=== PATIENT | female | born 1990 | race Native Hawaiian/Other Pacific Islander ===

== ENCOUNTER 2017-11-23 12:55 | Inpatient (IN) | payer BC, OTHER ==
[~2017-11-23] VITALS: Ht 175.3 cm; Wt 64.0 kg
[2017-11-23] MEDS: LR 1,000 ML IV SCH ×2 (13:53→23:00)
[2017-11-23] MEDS ORDERED: LR 1,000 ML IV SCH (16:51)
[2017-11-23] MEDS ORDERED: LR 1,000 ML IV ONE (16:51)
[2017-11-23] MEDS ORDERED: OXYTOCIN/NORMAL SALINE 1,000 ML IV SCH (16:51)
[2017-11-23] MEDS ORDERED: NALBUPHINE HCL 10 MG/ML AMP IVP PRN (17:00)
[2017-11-23 17:47] LABS: BASOPHILS % (AUTO) 0.2 % (0.0-2.0); EOSINOPHILS % (AUTO) 0.4 % (0.0-4.0); HEMATOCRIT 30.5 % (36-48); HEMOGLOBIN 9.8 g/dL (12.0-16.0); LYMPHOCYTES # (AUTO) 1.9 K/uL (1.0-5.5); LYMPHOCYTES % (AUTO) 19.5 % (20.5-51.5); MEAN CORPUSCULAR HEMOGLOBIN 28 pg (27-31); MEAN CORPUSCULAR HGB CONC 32 % (32-36); MEAN CORPUSCULAR VOLUME 86 fL (79.0-98.0); MONOCYTES # (AUTO) 0.5 K/uL (0.0-1.0); MONOCYTES % (AUTO) 5.5 % (1.7-9.3); NEUTROPHILS # (AUTO) 7.2 K/uL (1.8-7.7); NEUTROPHILS % (AUTO) 74.4 % (40.0-70.0); PLATELET COUNT (AUTO) 148 K/uL (130-430); RED BLOOD CELL COUNT(AUTO) 3.56 MIL/uL (4.2-6.2); WHITE BLOOD COUNT (AUTO) 9.6 K/uL (4.8-10.8)
[2017-11-24] MEDS: LR 1,000 ML IV SCH (07:10)
[2017-11-24] MEDS ORDERED: fentaNYL CITRATE/PF 100 MCG/2 ML AMP ONE (12:15)
[2017-11-24] MEDS ORDERED: FENT2mCg/mL-ROPIVA0.2%/NS EPID 150 ML EP SCH (12:45)
[2017-11-24] MEDS ORDERED: LR 500 ML IV ONE (12:45)
[2017-11-24] MEDS ORDERED: fentaNYL CITRATE/PF 100 MCG/2 ML AMP IVP ONE ×2 (12:45)
[2017-11-24] MEDS ORDERED: ePHEDrine sulfate 50 MG/ML VIAL IVP PRN (12:45)
[2017-11-24] MEDS ORDERED: D5/0.45 NS 1,000 ML IV ONE (15:15)
[2017-11-24] MEDS ORDERED: METHYLERGONOVINE MALEATE 0.2 MG/ML AMP IM ONE (18:00)
[2017-11-24] MEDS ORDERED: OXYTOCIN/NORMAL SALINE 1,000 ML IV ONE (18:03)
[2017-11-24] MEDS ORDERED: OXYTOCIN/NORMAL SALINE 1,000 ML IV SCH (18:03)
[2017-11-24] MEDS ORDERED: SENNOSIDES/DOCUSATE SODIUM 1 TAB TABLET(SENOKOT-S) PO PRN (18:15)
[2017-11-24] MEDS ORDERED: HYDROCORTISONE 0.5%, 28.35 GM TOPICAL CREAM TP PRN (18:15)
[2017-11-24] MEDS ORDERED: DOCUSATE SODIUM 100 MG CAPSULE PO PRN (18:15)
[2017-11-24] MEDS ORDERED: METHYLERGONOVINE MALEATE 0.2 MG TABLET PO PRN (18:15)
[2017-11-24] MEDS ORDERED: OXYCODONE/ACETAMINOPHEN 5-325 TABLET PO PRN ×2 (18:15)
[2017-11-24] MEDS ORDERED: RHO(D) IMMUNE GLOBULIN/MALTOSE 1500 UNITS/1.3 ML (WINHRO) IM PRN (18:15)
[2017-11-24] MEDS ORDERED: ANUSOL 1 EA SUPP.RECT (PREPARATION H) RC PRN (18:15)
[2017-11-24] MEDS ORDERED: GLYCERIN/WITCH HAZEL (TUCKS PADS) TP PRN (18:15)
[2017-11-24] MEDS ORDERED: DERMOPLAST SPRAY TP PRN (18:15)
[2017-11-24] MEDS ORDERED: LANOLIN 7 GM OINT. TP PRN (18:15)
[2017-11-24] MEDS ORDERED: MEASLES,MUMPS&RUBELLA VACC/PF 12500 UNIT/0.5 ML VIAL SUBQ PRN (18:15)
[2017-11-24] MEDS ORDERED: ONDANSETRON HCL 4 MG/2 ML VIAL IVP PRN (18:45)
[2017-11-24] MEDS ORDERED: TEMAZEPAM 15 MG CAPSULE PO PRN (21:00)
[2017-11-25] MEDS: IBUPROFEN 800 MG TABLET PO PRN ×4 (00:20→17:49)
[2017-11-25 06:55] LABS: HEMOGLOBIN 7.2 g/dL (12.0-16.0)
[2017-11-25 07:00] LABS: HEMATOCRIT 21.4 % (36-48)
[2017-11-25] MEDS ORDERED: ROPIVACAINE 0.2% (NAROPIN) PF SOLUTION 100 ML BOTTLE EP ONE (18:53)
[2017-11-25] MEDS ORDERED: [UNRECOGNIZED DRUG - OTHER] INJ ONE (18:53)
[2017-11-25] MEDS ORDERED: MINERAL OIL 30 ML UDC PO ONE (18:53)
[2017-11-25] MEDS ORDERED: LIDOCAINE/EPI 1% 1:100000 20 ML VIAL INJ ONE (18:53)
== END 2017-11-25 18:54 | disposition home or self-care (01) | DRG 775 ==
LOC: SPU 12:55 → OBSVTOIN 16:30
PROVIDERS: ADMIT Obstetrics & Gynecology; ATTEND Obstetrics & Gynecology
PROC: 10E0XZZ Delivery of Products of Conception, External Approach (ICD-10-PCS; principal; 2017-11-23)
PROC: 0DQR0ZZ Repair Anal Sphincter, Open Approach (ICD-10-PCS; 2017-11-23)
PROC: 3E0R3BZ Introduction of Anesthetic Agent into Spinal Canal, Percutaneous Approach (ICD-10-PCS; 2017-11-23)
PROC: 00HU33Z Insertion of Infusion Device into Spinal Canal, Percutaneous Approach (ICD-10-PCS; 2017-11-23)
DX: O70.9 Perineal laceration during delivery, unspecified (principal); Z37.0 Single live birth; Z3A.38 38 weeks gestation of pregnancy
CPT/HCPCS: 36415; 76815; 81002-TC; 82962; 85018-TC; 85025; 86592; 86886; 86900; 86901; G0378; J2210; J2405; J2590; J2795; J3010; J7120